=== PATIENT | female | born 1955 | race Caucasian/White ===

== ENCOUNTER 2024-01-15 15:34 | Emergency (ER) | payer MEDICARE ==
[~2024-01-15] VITALS: Ht 167.6 cm; Wt 102.3 kg
[2024-01-15 15:38] VITALS: TEMP 98.1
[2024-01-15] MEDS ORDERED: fentaNYL 50 MCG/ML 2 ML VIAL IV ONE (16:00)
[2024-01-15] MEDS ORDERED: NORCO 325 MG-51 TAB PO (17:55)
[2024-01-15 18:12] VITALS: BP 142/67; PULSE 59
== END 2024-01-15 18:12 | disposition home or self-care (01) ==
LOC: COL.ER 15:34
DX: S63.501A Unspecified sprain of right wrist, initial encounter (principal); S16.1XXA Strain of muscle, fascia and tendon at neck level, initial encounter; S20.211A Contusion of right front wall of thorax, initial encounter; S40.011A Contusion of right shoulder, initial encounter; W01.0XXA Fall on same level from slipping, tripping and stumbling without subsequent striking against object, initial encounter; Y93.01 Activity, walking, marching and hiking; Y92.59 Other trade areas as the place of occurrence of the external cause
CPT/HCPCS: J3010